=== PATIENT | female | born 1995 ===

== ENCOUNTER 2020-05-20 12:14 | Inpatient (IN) | payer OTHER ==
--- NOTE | 2020-05-20 13:32 | History and Physical Report ---
History of Present Illness Date of examination: 05/20/20 Date of admission: 05/20/20 13:00 Chief complaint: leakage of fluid earlier today and contractions History of present illness: at 39.3wks by EDC 05/24/20 and care at [facility]. Pt admits to movement, leakage of fluid and feeling ctx. Denies headache or vaginal bleeding. Past History Past Medical History: no pertinent history Past Surgical History: no surgical history Social history: no significant social history - Obstetrical History : 1 Number of Living Children: 0 Medications and Allergies Allergies Allergy/AdvReac Type Severity Reaction Status Date / Time No Known Allergies Allergy Unverified 05/20/20 13:34 Review of Systems All systems: negative (ctx and leakage of fluid) - Physical Exam Breasts: Positive: deferred Cardiovascular: Regular rate Lungs: Positive: Normal air movement Abdomen: Positive: other (non-tender gravid) Genitourinary (Female): Positive: normal external genitalia Vagina: Positive: other (thick meconium stained fluid) Uterus: Positive: enlarged (non-tender gravid uterus) Extremities: Positive: normal - Obstetrical FHR: category 1 Uterine Contraction Monitor Mode: External Cervical Dilatation: 1 Cervical Effacement Percentage: 80 station: -1 Uterine Contraction Pattern: Irregular Uterine Contraction Intensity: Moderate Results All other labs normal. Assessment and Plan Term IUP at 39.3wks with meconium stained fluid, PROM 1. Admit to labor and delivery 2. Will induce labor with pitocin 3. U/S at bedside by me confirms vertex presentation 4. May have IV or epidural per pt choice 5. Will give ampicillin x1 dose now with thick meconium stained fluid, CBC ordered and await wbc results. Additional labs of CMP and Hep C ordered. Discussed plan of care with pt and will proceed to alternate mode of delivery if NRFHR. All questions encouraged and answered. Hopeful for vaginal delivery
[2020-05-20] MEDS ORDERED: LIDOCAINE (2%) 20 MG/1 ML VIAL 20 ML MDV INFILTRATI ONE (13:37)
[2020-05-20] MEDS ORDERED: MINERAL OIL 30 ML ORAL LIQD PO PRN ×2 (13:37→14:00)
[2020-05-20] MEDS ORDERED: ePHEDrine SULFATE 50 MG/1 ML INJ IV PRN ×2 (13:37)
[2020-05-20] MEDS ORDERED: AMPICILLIN/NS 2 GM/100 ML 2 GM/100 ML BAG IV ONE (13:37)
[2020-05-20] MEDS ORDERED: TERBUTALINE 1 MG/1 ML INJ SUB-Q PRN ×2 (13:37)
[2020-05-20] MEDS ORDERED: LACTATED RINGERS 1,000 ML IV SCH (13:45)
[2020-05-20] MEDS ORDERED: fentaNYL 100 MCG/2 ML INJ IV PRN (14:00)
[2020-05-20] MEDS ORDERED: BUTORPHANOL 2 MG/1 ML INJ IV PRN (14:00)
[2020-05-20] MEDS ORDERED: LIDOCAINE (2%) 20 MG/1 ML VIAL 20 ML MDV INFILTRATI SCH (14:00)
[2020-05-20] MEDS ORDERED: OXYTOCIN DRIP 30 UNITS/500 ML BAG IV SCH ×3 (14:00)
[2020-05-20 14:25] LABS: Hematocrit 35.8 % (30.3-42.9); Hemoglobin 12.1 gm/dl (10.1-14.3); Mean Corpuscular HGB Conc 34 % (30-34); Mean Corpuscular Volume 91 fl (79-97); Platelet Count 214 K/mm3 (140-440); Red Blood Count 3.95 M/mm3 (3.65-5.03); Red Cell Distribution Width 14.1 % (13.2-15.2)
[2020-05-20] MEDS ORDERED: NalbUPHINE 10 MG/1 ML INJ IV PRN ×2 (14:30→20:11)
[2020-05-20] MEDS ORDERED: PROMETHAZINE 25 MG TAB PO PRN (14:30)
[2020-05-20 14:44] LABS: Alanine Aminotransferase 10 units/L (7-56); Albumin 4.2 g/dL (3.9-5); Blood Urea Nitrogen 9 mg/dL (7-17); Calcium 9.1 mg/dL (8.4-10.2); Hemolysis Index 5
[2020-05-20] MEDS: LACTATED RINGERS 1,000 ML IV SCH ×2 (14:51→19:44)
[2020-05-20 15:35] LABS: BUN/Creatinine Ratio 18
[2020-05-20 16:07] LABS: Hepatitis C Virus Antibody Non-Reactive (NonReactive)
[2020-05-20] MEDS: OXYTOCIN DRIP 30 UNITS/500 ML BAG IV SCH ×2 (16:15→22:07)
[2020-05-20] MEDS ORDERED: AMPICILLIN/NS 1 GM/50 ML 1 GM/50 ML BAG IV SCH (19:57)
[2020-05-20] MEDS ORDERED: SODIUM CHLORIDE 0.9% 1000 ML 1,000 ML VG SCH (20:00)
[2020-05-20] MEDS ORDERED: ONDANSETRON 4 MG/2 ML INJ IV PRN (20:11)
[2020-05-20] MEDS ORDERED: NALOXONE 2 MG/2 ML INJ IV PRN (20:11)
[2020-05-20] MEDS ORDERED: diphenhydrAMINE 50 MG/ML VIAL IV PRN (20:11)
--- NOTE | 2020-05-20 20:41 | Anesthesia Consultation ---
Anesthesia Consult and Med Hx Date of service: 05/20/20 - Airway Anesthetic Teeth Evaluation: Good ROM Head & Neck: Adequate Mental/Hyoid Distance: Adequate Mallampati Class: Class I Intubation Access Assessment: Good - Pulmonary Exam CTA: Yes - Cardiac Exam Cardiac Exam: RRR - Pre-Operative Health Status ASA Pre-Surgery Classification: ASA2 Proposed Anesthetic Plan: Epidural, Spinal - Pulmonary Hx Smoking: No Hx Asthma: No COPD: No Hx Pneumonia: No Hx Sleep Apnea: No - Cardiovascular System Hx Hypertension: No Hx Heart Attack/AMI: No Hx Angina: No - Central Nervous System Hx Seizures: No Hx Psychiatric Problems: No - Gastrointestinal Hx Gastroesophageal Reflux Disease: No - Endocrine Hx Renal Disease: No Hx End Stage Renal Disease: No Hx Insulin Dependent Diabetes: No Hx Non-Insulin Dependent Diabetes: No Hx Hypothyroidism: No Hx Hyperthyroidism: No - Hematic Hx Anemia: No Hx Sickle Cell Disease: No - Other Systems Hx Alcohol Use: No
--- NOTE | 2020-05-20 20:42 | Progress Note ---
Labor Epidural - Labor Epidural Start Time: 20:15 Stop Time: 20:38 Performed by:: JAY AGUERO Procedure: Patient is requesting combined spinal epidural for labor and pain. H&P, labs were reviewed. All questions and concerns were answered. Informed consent was obtained. Timeout performed. Patient in sitting position on side of bed. Sterile prep and drape was performed. 3 mL 1% lidocaine skin wheal at L [3]-L [4]. 18-gauge Tuohy epidural needle advanced to [id number] using air technique, [6]. 27-gauge spinal needle advanced, positive free-flowing CSF. Spinal dose of [Marcaine 3.5mg]. Epidural catheter advanced to [11] cm. [negative] Aspiration, [negative] test dose. Sterile dressing applied. Patient tolerated procedure well.
[2020-05-20] MEDS ORDERED: fentaNYL-BUPIV 2 MCG/ML-0.125% 200 MCG/100 ML BAG EPIDURAL SCH (21:00)
[2020-05-21] MEDS ORDERED: HYDROcodone/ACETAMINOPHEN 5-325 MG TAB PO PRN (03:55)
[2020-05-21] MEDS ORDERED: MAGNESIUM HYDROXIDE (MOM) ORAL LIQD UDC PO PRN (03:55)
[2020-05-21] MEDS ORDERED: diphenhydrAMINE 25 MG CAP PO PRN (03:55)
[2020-05-21] MEDS ORDERED: WITCH HAZEL/ GLYCERIN PAD TP PRN (03:55)
[2020-05-21] MEDS ORDERED: LANOLIN/ZINC/DIMETHICONE (LANSINOH) 7 GM TP PRN (03:55)
--- NOTE | 2020-05-21 04:12 | Procedure Note ---
OB Delivery Note - Delivery Date of Delivery: 05/21/20 Surgeon: WILLIAM IVEY Estimated blood loss: other (350 cc) - Vaginal Delivery presentation: vertex Delivery position: OA Intrapartum events: meconium Delivery induction: none Delivery augmentation: pitocin Delivery monitor: external FHT, external uterine, internal FHT, internal uterine Route of delivery: Delivery placenta: spontaneous Delivery cord: 3 umbilical vessels Episiotomy: none Delivery laceration: 2nd degree Delivery repair: vicryl Anesthesia: epidural Delivery comments: Spontaneous vaginal delivery at 02:51 of liveborn female infant weighing 7 lb. 4 oz. over 2nd degree perineal laceration with apgars of 7/9. Meconium stained a mniotic fluid; NICU team present for delivery. was atraumatic; no nuchal cord. Spontaneous cry and respirations. Baby placed skin to skin with mom immediately after ; baby was bulb suctioned and dried with warm towels. 3 vessel cord double clamped and cut and baby was taken to radiant warmer for further suctioning. Cord blood obtained. Spontaneous delivery of intact placenta and membranes by meyer mechanism at 02:58. EBL 350 cc. Pitocin to IV fluids after delivery of placenta. Fundus firm and midline. 2nd degree perineal laceration repaired with 2-0 vicryl and 3-0 vicryl. No other lacerations noted. Vaginal sweep negative. Sponge and instrument counts correct. Mother and baby stable in birthing room.
[2020-05-21 06:27] LABS: Hematocrit 30.5 % (30.3-42.9); Hemoglobin 10.4 gm/dl (10.1-14.3); Mean Corpuscular HGB Conc 34 % (30-34); Mean Corpuscular Volume 91 fl (79-97); Platelet Count 188 K/mm3 (140-440); Red Blood Count 3.37 M/mm3 (3.65-5.03); Red Cell Distribution Width 14.1 % (13.2-15.2)
--- NOTE | 2020-05-21 07:48 | Post Anesthesia Evaluation ---
- Post Anesthesia Evaluation Patient Participated: Yes Airway Patent: Yes Stable Respiratory Function: Yes Nausea/Vomiting: No Temp > 96.8F: Yes Pain Manageable: Yes Adequeate Hydration: Yes Anesthesia Complications: No Block Receding Appropriately: Yes Patient on Ventilator: No
[2020-05-21 09:34] LABS: Band Neutrophils # (Manual) 1.3 K/mm3; Total Cells Counted 100
[2020-05-21 09:35] LABS: Platelet Estimate Consistent w Auto; RBC Morphology Normal
[2020-05-21 10:14] LABS: Bilirubin,Urine NEG (Negative); Blood,Urine LG (Negative); Color,Urine Red (Yellow); Mucus,Urine FEW /HPF; Urobilinogen,Urine < 2.0 mg/dL (<2.0)
[2020-05-21 10:15] LABS: RBC,Urine > 182.0 /HPF (0.0-6.0)
[2020-05-21] MEDS: AMPICILLIN/NS 2 GM/100 ML 2 GM/100 ML BAG IV SCH ×3 (11:13→22:20)
[2020-05-21] MEDS: IBUPROFEN 600 MG TAB PO SCH ×3 (11:23→23:40)
[2020-05-21] MEDS: FERROUS SULFATE 325 MG TAB PO SCH (11:23)
[2020-05-21] MEDS: DOCUSATE SODIUM 100 MG CAP PO SCH ×2 (11:23→21:31)
[2020-05-21 11:30] LABS: Alanine Aminotransferase 8 units/L (7-56); Blood Urea Nitrogen 6 mg/dL (7-17); Calcium 8.3 mg/dL (8.4-10.2); Hemolysis Index 2
[2020-05-21 11:48] LABS: BUN/Creatinine Ratio 12
--- NOTE | 2020-05-21 13:02 | Event Note ---
Date: 05/21/20 WBC elevated at 21,000. Urine culture and blood cultures ordered. Patient denies fever or chills. Ampicillin and Gentamicin ordered. Patient is taking oral iron supplements for anemia. Will repeat CBC tomorrow AM.
[2020-05-21] MEDS: GENTAMICIN 100 MG in SODIUM CHLORIDE 0.9% 100 ML IV SCH ×2 (13:36→21:32)
[2020-05-22] MEDS: IBUPROFEN 600 MG TAB PO SCH ×5 (00:11→20:53)
[2020-05-22] MEDS: AMPICILLIN/NS 2 GM/100 ML 2 GM/100 ML BAG IV SCH (04:56)
[2020-05-22] MEDS: GENTAMICIN 100 MG in SODIUM CHLORIDE 0.9% 100 ML IV SCH (05:53)
[2020-05-22 07:14] LABS: Hematocrit 26.4 % (30.3-42.9); Mean Corpuscular HGB Conc 34 % (30-34); Mean Corpuscular Volume 90 fl (79-97); Platelet Count 179 K/mm3 (140-440); Red Blood Count 2.94 M/mm3 (3.65-5.03); Red Cell Distribution Width 14.6 % (13.2-15.2)
[2020-05-22 08:53] LABS: Band Neutrophils # (Manual) 0.3 K/mm3; RBC Morphology Normal; Total Cells Counted 100
--- NOTE | 2020-05-22 10:30 | Progress Note ---
Assessment and Plan A: day 1 S/P . Anemia. Leukocytosis: blood and urine culture results pending. Patient received Ampicillin and Gentamicin. P: Continue iron supplementation. Await results of coronavirus test and blood and urine culture results. Repeat CBC tomorrow AM. Subjective - Subjective Date of service: 05/22/20 Principal diagnosis: day 1 S/P Interval history: WBC count decreasing. Blood cultures and urine culture pending. No fever or chills or malaise. Coronavirus test result pending. Patient reports: appetite normal, voiding normally, pain well controlled, flatus, ambulating normally, no dizzy ambulation, no nauseated [place]: doing well Objective - Vital Signs Latest vital signs: Vital Signs Temp Pulse Resp BP Pulse Ox 05/22/20 07:28 98.0 F 65 20 95/54 97 05/21/20 23:46 98.2 F 74 20 97/54 98 05/21/20 15:56 98.0 F 86 20 110/62 97 Intake and Output 05/21/20 05/22/20 05/22/20 23:59 07:59 15:59 Intake Total 1365.0 440 Balance 1365.0 440 Intake: IV 405.0 200 AMPICILLIN/NS 2 GM/100 ML 200 100 2 gm In 100 ml @ 100 mls /hr IV Q6H KATTY Rx#: [id number] Gentamicin 100 mg In NaCl 205.0 100 0.9% 100 ml @ 200 mls/hr IV Q8H KATTY Rx#:[id number] Oral 360 240 Intake, Free Water 600 Other: Total, Intake Amount 360 240 # Voids Void 1 1 - Exam Cardiovascular: Present: Regular rate Lungs: Present: Clear to auscultation Abdomen: Present: normal appearance, soft. Absent: distention, tenderness, guarding, rigidity Uterus: Present: normal, firm, fundal height below umbilicus. Absent: bogginess, tenderness Extremities: Present: normal. Absent: tenderness, edema - Labs Labs: Abnormal lab results 05/21/20 05/22/20 Range/Units 10:55 07:00 WBC 15.8 H (4.5-11.0) K/mm3 RBC 2.94 L (3.65-5.03) M/mm3 Hgb 9.0 L (10.1-14.3) gm/dl Hct 26.4 L (30.3-42.9) % Seg Neuts % (Manual) 82.0 H (40.0-70.0) % Lymphocytes % (Manual) 13.0 L (13.4-35.0) % Seg Neutrophils # Man 13.0 H (1.8-7.7) K/mm3 Sodium 134 L (137-145) mmol/L BUN 6 L (7-17) mg/dL Creatinine 0.5 L (0.6-1.2) mg/dL Glucose 113 H (65-100) mg/dL Calcium 8.3 L (8.4-10.2) mg/dL Total Protein 5.7 L (6.3-8.2) g/dL Albumin 3.0 L (3.9-5) g/dL
[2020-05-22] MEDS: FERROUS SULFATE 325 MG TAB PO SCH (11:44)
[2020-05-22] MEDS: DOCUSATE SODIUM 100 MG CAP PO SCH ×2 (11:44→21:05)
[2020-05-23] MEDS: IBUPROFEN 600 MG TAB PO SCH (05:43)
[2020-05-23 09:04] LABS: Hematocrit 26.1 % (30.3-42.9); Mean Corpuscular HGB Conc 35 % (30-34); Mean Corpuscular Volume 90 fl (79-97); Platelet Count 179 K/mm3 (140-440); Red Blood Count 2.89 M/mm3 (3.65-5.03); Red Cell Distribution Width 14.2 % (13.2-15.2)
[2020-05-23 09:50] LABS: Myelocytes # (Manual) 0.1 K/mm3; Total Cells Counted 100
--- NOTE | 2020-05-23 09:51 | Progress Note ---
Assessment and Plan A: S/P Leukocytosis P: Continue routine pp care Awaiting results of urine and blood cultures Will continue monitoring Subjective - Subjective Date of service: 05/23/20 Principal diagnosis: day 1 S/P Patient reports: appetite normal, voiding normally, pain well controlled, ambulating normally [place]: doing well, nursing well Objective - Vital Signs Latest vital signs: Vital Signs Temp Pulse Resp BP Pulse Ox 05/23/20 07:41 97.5 F L 70 18 89/47 99 05/23/20 05:43 14 05/23/20 00:56 97.9 F 70 18 97/53 97 05/22/20 20:53 14 05/22/20 16:06 97.9 F 80 20 111/65 97 Intake and Output 05/22/20 05/23/20 05/23/20 22:59 06:59 14:59 Intake Total 200 600 Balance 200 600 Intake: Oral 200 Intake, Free Water 600 Other: Total, Intake Amount 200 # Voids Void 1 1 - Exam Breasts: Present: normal Abdomen: Present: normal appearance, soft, normal bowel sounds Vulva: both: normal Uterus: Present: normal, firm, fundal height below umbilicus Extremities: Present: normal Incision: Present: normal, intact - Labs Labs: Abnormal lab results 05/22/20 05/23/20 Range/Units 07:00 08:30 WBC 15.8 H 11.3 H (4.5-11.0) K/mm3 RBC 2.94 L 2.89 L (3.65-5.03) M/mm3 Hgb 9.0 L 9.0 L (10.1-14.3) gm/dl Hct 26.4 L 26.1 L (30.3-42.9) % MCHC 35 H (30-34) % Seg Neuts % (Manual) 82.0 H (40.0-70.0) % Lymphocytes % (Manual) 13.0 L (13.4-35.0) % Seg Neutrophils # Man 13.0 H (1.8-7.7) K/mm3
[2020-05-23 09:52] LABS: Anisocytosis RARE; Platelet Estimate Consistent w Auto
--- NOTE | 2020-05-23 16:24 | Discharge Summary ---
Providers - Providers Date of Admission: 05/20/20 13:00 Date of discharge: 05/23/20 Attending physician: SAE ASKEW Primary care physician: SAE ASKEW Hospitalization Reason for admission: active labor, IUP at term Delivery: Episiotomy: none Laceration: 2nd degree Incision: normal, intact Other procedures: none complications: other (elevated WBC) baby: female Hospital course: Pt was admitted to [facility]. She had a . Pt's wbc went up after delivery and a lab workup to r/o source of infection was done. Pt received Ampi/Gent. Urine and blood cul were neg and pt's WBC went down. Pt was d/c'd home after consulting with Dr Rossi. See H&P, delivery summary, and pp notes. Condition at discharge: Stable Disposition: DC-01 TO HOME OR SELFCARE Plan - Discharge Medications Prescriptions: Ibuprofen [Motrin 600 MG tab] 600 mg PO Q6HR #30 tablet - Provider Discharge Summary Activity: routine, no sex for 6 weeks, no heavy lifting 4 weeks, no strenuous exercise Diet: routine Instructions: routine Additional instructions: [] Smoking cessation referral if applicable(refer to patient education folder for contact #) [] Refer to [facility] Booklet Call your doctor immediately for: * Fever > 100.5 * Heavy vaginal bleeding ( >1 pad per hour) * Severe persistent headache * Shortness of breath * Reddened, hot, painful area to leg or breast * Drainage or odor from incision. * Keep incision clean and dry at all times and follow doctor's instructions regarding bathing/showering - Follow up plan Follow up: SAE ASKEW MD [Primary Care Provider] - 6 Weeks
[2020-05-23 17:35] VITALS: BP 98/53
== END 2020-05-23 18:15 | disposition home or self-care (01) | DRG 807 ==
LOC: TRG 12:14 → APU 12:15 → TRG 12:59 → APU 13:00 → LD 16:05 → OB 05-21 05:44
PROVIDERS: ADMIT Obstetrics & Gynecology; ATTEND Obstetrics & Gynecology
PROC: 3E0R3BZ Introduction of Anesthetic Agent into Spinal Canal, Percutaneous Approach (ICD-10-PCS; 2020-05-20)
PROC: 00HU33Z Insertion of Infusion Device into Spinal Canal, Percutaneous Approach (ICD-10-PCS; 2020-05-20)
PROC: 10E0XZZ Delivery of Products of Conception, External Approach (ICD-10-PCS; principal; 2020-05-21)
PROC: 0KQM0ZZ Repair Perineum Muscle, Open Approach (ICD-10-PCS; 2020-05-21)
DX: O77.0 Labor and delivery complicated by meconium in amniotic fluid (principal); Z37.0 Single live birth; Z3A.39 39 weeks gestation of pregnancy; O42.02 Full-term premature rupture of membranes, onset of labor within 24 hours of rupture; D64.9 Anemia, unspecified; O70.1 Second degree perineal laceration during delivery; Z20.822 Contact with and (suspected) exposure to COVID-19
CPT/HCPCS: 36415; 80053; 81001; 84112; 85007; 85025; 85027; 86592; 86803; 86850; 86900; 86901; 87040; 87086; G0378; J0290; J1580; J2590; J7030; J7120; Q0169; U0003